=== PATIENT | male | born 1960 | race African-American/Black ===

== ENCOUNTER 2024-03-05 18:47 | Emergency (ER) | payer MEDICAID, MEDICARE, OTHER ==
[2024-03-05] MEDS ORDERED: Aspirin Chewable 81 MG TAB ONE (19:18)
[2024-03-05 19:45] LABS: #Basophils 0.1 thou/uL (0.0-0.2); #Eosinphils 0.1 thou/uL (0.0-0.7); #Lymphocytes 2.1 thou/uL (1.20-3.40); #Monocytes 0.7 thou/uL (0.11-0.59); #Neutrophils 2.8 thou/uL (1.40-6.50); %Basophils 1.9 % (0.0-1.0); %Eosinophils 2.2 % (0.0-10.0); %Lymphocytes 36.1 % (21.0-51.0); %Monocytes 11.5 % (0.0-10.0); %Neutrophils 48.3 % (42.0-75.0); Hematocrit 35.8 % (42.0-52.0); Hemoglobin 10.2 g/dL (14.0-18.0); Mean Corpuscular HGB CONC 28.5 g/dL (32.0-36.0); Mean Corpuscular Hemoglobin 26.6 pg (27.0-31.0); Mean Platelet Volume 6.7 fL (7.4-10.4); Platelet Count 278 10x3/uL (130-400); RBC Distribution Width 15.7 % (11.5-14.5); Red Blood Cell (RBC) Count 3.85 mill/uL (4.70-6.10); White Blood Cell (WBC) Count 5.8 10x3/uL (4.8-10.8)
[2024-03-05 19:53] LABS: ALT (SGPT) 21 U/L (8-55); AST (SGOT) 17 U/L (5-34); Albumin 3.8 g/dL (3.4-4.8); Alkaline Phosphatase 172 U/L (40-110); Anion Gap 15 mmol/L (10-20); BUN (Urea Nitrogen) 23 mg/dL (8.4-25.7); Bilirubin, Total 0.3 mg/dL (0.2-1.2); Calc. Creatinine Clearance 0 mL/min (70-130); Calcium 9.3 mg/dL (7.8-10.44); Carbon Dioxide 24 mmol/L (23-31); Chloride 104 mmol/L (98-107); Estimated GFR 43; Globulin 4.4 g/dL (2.4-3.5); Glucose 118 mg/dL (80-115); Potassium 5.6 mmol/L (3.5-5.1); Protein, Total 8.2 g/dL (5.8-8.1); Sodium 137 mmol/L (136-145)
[2024-03-05 19:54] LABS: Troponin I 0.022 ng/mL (< 0.028)
== END 2024-03-05 22:02 | disposition short-term general hospital (02) ==
LOC: NAV ERS 18:47
DX: T16.1XXA Foreign body in right ear, initial encounter (principal); R07.9 Chest pain, unspecified; E87.5 Hyperkalemia; I11.0 Hypertensive heart disease with heart failure; I50.9 Heart failure, unspecified; E11.9 Type 2 diabetes mellitus without complications; I48.0 Paroxysmal atrial fibrillation; Z79.01 Long term (current) use of anticoagulants; Z87.891 Personal history of nicotine dependence; X58.XXXA Exposure to other specified factors, initial encounter
CPT/HCPCS: 69200; 71045; 80053; 83880; 84484; 85025; 85379; 93005; 94760